=== PATIENT | male | born 2000 | race Caucasian/White ===

== ENCOUNTER 2023-10-17 15:02 | Emergency (ER) | payer SELFPAY ==
[~2023-10-17] VITALS: Ht 177.8 cm; Wt 118.0 kg
[2023-10-17 15:28] VITALS: O2SAT 97
[2023-10-17] MEDS ORDERED: LIDO700A15 TP (18:41)
[2023-10-17] MEDS ORDERED: CYCL5TAB MT (18:41)
[2023-10-17 19:17] VITALS: BP 128/71; PULSE 99; RESP 18; TEMP 97.7
== END 2023-10-17 19:18 | disposition home or self-care (01) ==
LOC: ER 15:02
DX: S39.012A Strain of muscle, fascia and tendon of lower back, initial encounter (principal); X58.XXXA Exposure to other specified factors, initial encounter; Y93.89 Activity, other specified; Y92.89 Other specified places as the place of occurrence of the external cause; Y99.8 Other external cause status
CPT/HCPCS: 71045; 99283